=== PATIENT | female | born 1950 | race Caucasian/White ===

== ENCOUNTER → 2022-03-28 13:59 | Outpatient (CLI) | payer MEDICARE, OTHER, SELFPAY | PROVIDERS: PCP Internal Medicine; Referring Provider Internal Medicine; Visit Provider Family Medicine | DX: I87.2 Venous insufficiency (chronic) (peripheral) (principal); I89.0 Lymphedema, not elsewhere classified; L97.822 Non-pressure chronic ulcer of other part of left lower leg with fat layer exposed; L08.9 Local infection of the skin and subcutaneous tissue, unspecified; L25.8 Unspecified contact dermatitis due to other agents; R60.0 Localized edema; Z99.3 Dependence on wheelchair; Z74.09 Other reduced mobility; Z79.899 Other long term (current) drug therapy | CPT/HCPCS: 11042; 87070; 87075; 87077; 87186; 87205; 99204; 99213 ==

== ENCOUNTER → 2022-04-11 14:16 | Outpatient (CLI) | payer MEDICARE, OTHER, SELFPAY | PROVIDERS: PCP Internal Medicine; Referring Provider Internal Medicine; Visit Provider Family Medicine | DX: I89.0 Lymphedema, not elsewhere classified (principal); L97.822 Non-pressure chronic ulcer of other part of left lower leg with fat layer exposed; L08.9 Local infection of the skin and subcutaneous tissue, unspecified; I87.2 Venous insufficiency (chronic) (peripheral); L25.8 Unspecified contact dermatitis due to other agents; G35 Multiple sclerosis; Z99.3 Dependence on wheelchair; Z74.09 Other reduced mobility; Z79.899 Other long term (current) drug therapy; B96.29 Other Escherichia coli [E. coli] as the cause of diseases classified elsewhere | CPT/HCPCS: 11042; 87070; 87075; 87077; 87147; 87186; 87205; 99214 ==

== ENCOUNTER → 2022-04-18 13:15 | Outpatient (CLI) | payer MEDICARE, OTHER, SELFPAY | PROVIDERS: PCP Internal Medicine; Referring Provider Internal Medicine; Visit Provider Surgery | DX: I87.2 Venous insufficiency (chronic) (peripheral) (principal); I89.0 Lymphedema, not elsewhere classified; L97.822 Non-pressure chronic ulcer of other part of left lower leg with fat layer exposed; L03.116 Cellulitis of left lower limb; Z79.899 Other long term (current) drug therapy; L25.8 Unspecified contact dermatitis due to other agents; Z99.3 Dependence on wheelchair | CPT/HCPCS: 11042; 99214 ==

== ENCOUNTER → 2022-04-25 15:09 | Outpatient (CLI) | payer MEDICARE, OTHER, SELFPAY | PROVIDERS: PCP Internal Medicine; Referring Provider Internal Medicine; Visit Provider Family Medicine | DX: Z99.3 Dependence on wheelchair (principal); Z74.09 Other reduced mobility; Z79.899 Other long term (current) drug therapy; I87.2 Venous insufficiency (chronic) (peripheral); I89.0 Lymphedema, not elsewhere classified; L97.822 Non-pressure chronic ulcer of other part of left lower leg with fat layer exposed; L03.116 Cellulitis of left lower limb | CPT/HCPCS: 29581; 99212 ==

== ENCOUNTER → 2022-05-09 13:51 | Outpatient (CLI) | payer MEDICARE, OTHER, SELFPAY | PROVIDERS: PCP Internal Medicine; Referring Provider Internal Medicine; Visit Provider Surgery | DX: I87.2 Venous insufficiency (chronic) (peripheral) (principal); I89.0 Lymphedema, not elsewhere classified; L97.822 Non-pressure chronic ulcer of other part of left lower leg with fat layer exposed; Z99.3 Dependence on wheelchair | CPT/HCPCS: 87070; 87075; 87205; 97597; 99212 ==

== ENCOUNTER → 2022-05-16 13:47 | Outpatient (CLI) | payer MEDICARE, OTHER, SELFPAY | PROVIDERS: PCP Internal Medicine; Referring Provider Internal Medicine; Visit Provider Surgery | DX: I87.2 Venous insufficiency (chronic) (peripheral) (principal); L97.222 Non-pressure chronic ulcer of left calf with fat layer exposed; R60.0 Localized edema; G35 Multiple sclerosis; Z99.3 Dependence on wheelchair; Z74.09 Other reduced mobility | CPT/HCPCS: 97597; 99213 ==

== ENCOUNTER → 2022-06-13 13:11 | Outpatient (CLI) | payer MEDICARE, OTHER, SELFPAY | PROVIDERS: PCP Internal Medicine; Referring Provider Internal Medicine; Visit Provider Surgery | DX: I87.2 Venous insufficiency (chronic) (peripheral) (principal); I89.0 Lymphedema, not elsewhere classified; L97.822 Non-pressure chronic ulcer of other part of left lower leg with fat layer exposed; Z99.3 Dependence on wheelchair; Z74.09 Other reduced mobility | CPT/HCPCS: 11042; 99213 ==

== ENCOUNTER → 2022-06-27 13:01 | Outpatient (CLI) | payer MEDICARE, OTHER, SELFPAY | PROVIDERS: PCP Internal Medicine; Referring Provider Internal Medicine; Visit Provider Surgery | DX: I87.2 Venous insufficiency (chronic) (peripheral) (principal); I89.0 Lymphedema, not elsewhere classified; L97.822 Non-pressure chronic ulcer of other part of left lower leg with fat layer exposed; L03.116 Cellulitis of left lower limb; Z74.09 Other reduced mobility; Z99.3 Dependence on wheelchair | CPT/HCPCS: 97597 ==

== ENCOUNTER → 2022-07-04 13:09 | Outpatient (CLI) | payer MEDICARE, OTHER, SELFPAY | PROVIDERS: PCP Internal Medicine; Referring Provider Internal Medicine; Visit Provider Surgery | DX: I87.2 Venous insufficiency (chronic) (peripheral) (principal); L97.822 Non-pressure chronic ulcer of other part of left lower leg with fat layer exposed; I89.0 Lymphedema, not elsewhere classified; L03.116 Cellulitis of left lower limb; Z99.3 Dependence on wheelchair; Z79.899 Other long term (current) drug therapy; Z74.09 Other reduced mobility | CPT/HCPCS: 97597 ==

== ENCOUNTER → 2022-07-18 13:14 | Outpatient (CLI) | payer MEDICARE, OTHER, SELFPAY | PROVIDERS: PCP Internal Medicine; Referring Provider Internal Medicine; Visit Provider Surgery | DX: I87.2 Venous insufficiency (chronic) (peripheral) (principal); L97.822 Non-pressure chronic ulcer of other part of left lower leg with fat layer exposed; R60.0 Localized edema | CPT/HCPCS: 99212 ==

== ENCOUNTER → 2022-07-25 13:11 | Outpatient (CLI) | payer MEDICARE, OTHER, SELFPAY | PROVIDERS: PCP Internal Medicine; Visit Provider Surgery | DX: I87.2 Venous insufficiency (chronic) (peripheral) (principal); I89.0 Lymphedema, not elsewhere classified; L97.822 Non-pressure chronic ulcer of other part of left lower leg with fat layer exposed; S81.802A Unspecified open wound, left lower leg, initial encounter; Z99.3 Dependence on wheelchair; Z74.09 Other reduced mobility; Z79.899 Other long term (current) drug therapy | CPT/HCPCS: 15271; 29581; 97597; 99212; Q4196 ==

== ENCOUNTER → 2022-08-01 13:22 | Outpatient (CLI) | payer MEDICARE, OTHER, SELFPAY | PROVIDERS: PCP Internal Medicine; Referring Provider Internal Medicine; Visit Provider Surgery | DX: L97.822 Non-pressure chronic ulcer of other part of left lower leg with fat layer exposed (principal); I87.2 Venous insufficiency (chronic) (peripheral); I89.0 Lymphedema, not elsewhere classified; S81.802A Unspecified open wound, left lower leg, initial encounter; L08.9 Local infection of the skin and subcutaneous tissue, unspecified; G35 Multiple sclerosis; Z99.3 Dependence on wheelchair; Z74.09 Other reduced mobility | CPT/HCPCS: 11042; 36415; 80053; 85025 ==

== ENCOUNTER → 2022-08-01 14:15 | Outpatient (CLI) | payer MEDICARE, OTHER, SELFPAY ==
[2022-08-01 14:40] LABS: Add Manual Diff / Slide Review NO; Basophils Absolute Auto 100 /uL (0-100); Basophils Percent Auto 1.1 % (0-2); Eosinophils Absolute Auto 400 /uL (0-450); Eosinophils Percent Auto 7.4 % (2-4); Hematocrit 28.9 % (36-46); Hemoglobin 9.5 g/dL (12.0-16.0); Lymphocytes Absolute Auto 1700 /uL (1100-4500); Lymphocytes Percent Auto 31.6 % (25-40); Mean Corpuscular HGB Conc 32.7 % (30-36); Mean Corpuscular Hemoglobin 26.8 PG (26-34); Mean Corpuscular Volume 82.1 fL (80-100); Monocytes Absolute Auto 600 /uL (0-900); Monocytes Percent Auto 10.7 % (3-14); Neutrophils Absolute Auto 2600 /uL (1500-7000); Neutrophils Percent Auto 49.2 % (50-75); Platelet Count 287 X10^3/uL (150-400); Red Blood Cell Count 3.52 X10^6/uL (4.0-5.2); Red Cell Distribution Width 20.6 % (11.6-14.8); White Blood Cell Count 5.3 X10^3/uL (4.5-11.0)
[2022-08-01 14:50] LABS: Anisocytosis 1+; Poikilocytosis 1+
[2022-08-01 15:31] LABS: Alanine Aminotransferase 24 IU/L (<35); Albumin 4.1 g/dL (3.5-5.0); Albumin Globulin Ratio 1.3 (1.0-2.8); Alkaline Phosphatase 81 U/L (38-126); Aspartate Aminotransferase 25 IU/L (14-36); BUN Creatinine Ratio 42.7 (6-22); Blood Urea Nitrogen 56 mg/dL (7-17); Carbon Dioxide 27 mmol/L (22-32); Chloride 106 mmol/L (98-107); Estimated Glomerular Filt Rate 43 mL/min (>60); Globulin 3.2 g/dL (1.7-4.1); Glucose 79 mg/dL (80-110); HEMOLYSIS < 15 (0-50); Sodium 144 mmol/L (137-145); Total Protein 7.3 g/dL (6.3-8.2)
[2022-08-01 15:32] LABS: Bilirubin Total < 0.1 mg/dL (0.2-1.3); Potassium 5.6 mmol/L (3.4-5.1)
== END ==
PROVIDERS: PCP Internal Medicine; Referring Provider Surgery; Visit Provider Surgery
DX: L97.822 Non-pressure chronic ulcer of other part of left lower leg with fat layer exposed (principal)
CPT/HCPCS: 36415; 80053; 85025

== ENCOUNTER → 2022-08-08 13:01 | Outpatient (CLI) | payer MEDICARE, OTHER, SELFPAY | PROVIDERS: PCP Internal Medicine; Referring Provider Internal Medicine; Visit Provider Surgery | DX: I87.2 Venous insufficiency (chronic) (peripheral) (principal); I89.0 Lymphedema, not elsewhere classified; L97.822 Non-pressure chronic ulcer of other part of left lower leg with fat layer exposed; L03.116 Cellulitis of left lower limb; S81.802A Unspecified open wound, left lower leg, initial encounter; Z99.3 Dependence on wheelchair; Z74.09 Other reduced mobility; Z79.899 Other long term (current) drug therapy | CPT/HCPCS: 15271; 97597; Q4196 ==

== ENCOUNTER → 2022-08-15 14:38 | Outpatient (CLI) | payer MEDICARE, OTHER, SELFPAY | PROVIDERS: PCP Internal Medicine; Referring Provider Internal Medicine; Visit Provider Surgery | DX: I87.2 Venous insufficiency (chronic) (peripheral) (principal); L97.821 Non-pressure chronic ulcer of other part of left lower leg limited to breakdown of skin; I89.0 Lymphedema, not elsewhere classified; Z99.3 Dependence on wheelchair; Z74.09 Other reduced mobility | CPT/HCPCS: 15271; 97597; Q4196 ==

== ENCOUNTER → 2022-08-22 13:23 | Outpatient (CLI) | payer MEDICARE, OTHER, SELFPAY | PROVIDERS: PCP Internal Medicine; Referring Provider Internal Medicine; Visit Provider Surgery | DX: I87.2 Venous insufficiency (chronic) (peripheral) (principal); I89.0 Lymphedema, not elsewhere classified; S81.802A Unspecified open wound, left lower leg, initial encounter; L97.822 Non-pressure chronic ulcer of other part of left lower leg with fat layer exposed; L97.422 Non-pressure chronic ulcer of left heel and midfoot with fat layer exposed; L03.116 Cellulitis of left lower limb; Z99.3 Dependence on wheelchair; Z74.09 Other reduced mobility; Z79.899 Other long term (current) drug therapy | CPT/HCPCS: 15271; 97597; 99213; Q4196 ==

== ENCOUNTER → 2022-08-29 13:10 | Outpatient (CLI) | payer MEDICARE, OTHER, SELFPAY | PROVIDERS: PCP Internal Medicine; Referring Provider Internal Medicine; Visit Provider Surgery | DX: I87.2 Venous insufficiency (chronic) (peripheral) (principal); I89.0 Lymphedema, not elsewhere classified; L97.822 Non-pressure chronic ulcer of other part of left lower leg with fat layer exposed; S81.802A Unspecified open wound, left lower leg, initial encounter; G35 Multiple sclerosis; R60.0 Localized edema; Z99.3 Dependence on wheelchair; Z74.09 Other reduced mobility | CPT/HCPCS: 11042; 29581; 97597; 99213 ==

== ENCOUNTER → 2022-09-12 13:02 | Outpatient (CLI) | payer MEDICARE, OTHER, SELFPAY | PROVIDERS: PCP Internal Medicine; Referring Provider Internal Medicine; Visit Provider Surgery | DX: I87.2 Venous insufficiency (chronic) (peripheral) (principal); I89.0 Lymphedema, not elsewhere classified; L97.822 Non-pressure chronic ulcer of other part of left lower leg with fat layer exposed; L03.116 Cellulitis of left lower limb; Z99.3 Dependence on wheelchair; Z74.09 Other reduced mobility; Z79.899 Other long term (current) drug therapy | CPT/HCPCS: 11042 ==

== ENCOUNTER → 2022-09-26 12:42 | Outpatient (CLI) | payer MEDICARE, OTHER, SELFPAY ==
--- NOTE | 2022-09-26 12:43 | DI.US.S_ITS ---
PROCEDURE: US ARTERIAL DUPLEX LE LT INDICATIONS: NON-HEALING ULCER TECHNIQUE: Color and pulse Doppler interrogation was performed of the left lower extremity arterial system, with image documentation. COMPARISON: None. FINDINGS: Common femoral artery: 186 cm/sec, with triphasic flow. Deep femoral artery: 190 cm/sec, with monophasic flow. Proximal superficial femoral artery: 207 cm/sec, with monophasic flow. Mid superficial femoral artery: 125 cm/sec, with triphasic flow. Distal superficial femoral artery: 99 cm/sec, with monophasic flow. Popliteal artery: 124 cm/sec, with monophasic flow. Posterior tibial artery: Not well seen Anterior tibial artery/dorsalis pedis: 46 cm/sec, with monophasic flow. Dorsalis pedis artery is occluded. Mejía-scale imaging description: Moderate edema within the calf. IMPRESSION: 1. Findings suggestive of hemodynamically significant stenoses within the left-sided outflow vessels. 2. Occlusion of the dorsalis pedis artery. 3. Nonvisualization of the posterior tibial artery, possibly indicating occlusion. 4. MR angiography runoff evaluation is recommended for further assessment. Dictated by: Shauna Dawson M.D. on 09/26/2022 at 15:37 Transcribed by: [email or web address] on 09/26/2022 at 15:39 Approved by: Shauna Dawson M.D. on 09/26/2022 at 16:44
== END ==
PROVIDERS: PCP Internal Medicine; Referring Provider Surgery; Visit Provider Surgery
DX: L97.822 Non-pressure chronic ulcer of other part of left lower leg with fat layer exposed (principal); I77.1 Stricture of artery
CPT/HCPCS: 93926

== ENCOUNTER → 2022-09-26 | Outpatient (CLI) | payer MEDICARE, OTHER, SELFPAY | PROVIDERS: PCP Internal Medicine; Referring Provider Internal Medicine; Visit Provider Nurse Practitioner Family | DX: L97.822 Non-pressure chronic ulcer of other part of left lower leg with fat layer exposed (principal); I77.1 Stricture of artery; I87.2 Venous insufficiency (chronic) (peripheral) | CPT/HCPCS: 29581; 93926 ==

== ENCOUNTER → 2022-10-03 13:00 | Outpatient (CLI) | payer MEDICARE, OTHER, SELFPAY | PROVIDERS: PCP Internal Medicine; Referring Provider Internal Medicine; Visit Provider Surgery | DX: I87.2 Venous insufficiency (chronic) (peripheral) (principal); I89.0 Lymphedema, not elsewhere classified; L97.222 Non-pressure chronic ulcer of left calf with fat layer exposed; L97.422 Non-pressure chronic ulcer of left heel and midfoot with fat layer exposed; Z99.3 Dependence on wheelchair; Z74.09 Other reduced mobility; I73.9 Peripheral vascular disease, unspecified; G35 Multiple sclerosis; R53.1 Weakness | CPT/HCPCS: 11042; 97597; 99213 ==

== ENCOUNTER → 2022-10-17 13:17 | Outpatient (CLI) | payer MEDICARE, OTHER, SELFPAY | PROVIDERS: PCP Internal Medicine; Referring Provider Internal Medicine; Visit Provider Surgery | DX: I87.2 Venous insufficiency (chronic) (peripheral) (principal); I89.0 Lymphedema, not elsewhere classified; L97.822 Non-pressure chronic ulcer of other part of left lower leg with fat layer exposed; L97.422 Non-pressure chronic ulcer of left heel and midfoot with fat layer exposed; I73.9 Peripheral vascular disease, unspecified; Z74.09 Other reduced mobility; Z99.3 Dependence on wheelchair | CPT/HCPCS: 11042; 99213 ==

== ENCOUNTER → 2022-10-31 13:16 | Outpatient (CLI) | payer MEDICARE, OTHER, SELFPAY | PROVIDERS: PCP Internal Medicine; Referring Provider Internal Medicine; Visit Provider Surgery | DX: I87.2 Venous insufficiency (chronic) (peripheral) (principal); I89.0 Lymphedema, not elsewhere classified; L97.222 Non-pressure chronic ulcer of left calf with fat layer exposed; R60.0 Localized edema; L53.9 Erythematous condition, unspecified; Z99.3 Dependence on wheelchair; G35 Multiple sclerosis | CPT/HCPCS: 11042; 29581; 99212 ==

== ENCOUNTER → 2022-11-21 12:25 | Outpatient (CLI) | payer MEDICARE, OTHER, SELFPAY ==
[2022-11-21 14:15] LABS: Add Manual Diff / Slide Review NO; Basophils Absolute Auto 0 /uL (0-100); Basophils Percent Auto 0.4 % (0-2); Eosinophils Absolute Auto 100 /uL (0-450); Eosinophils Percent Auto 2.9 % (2-4); Hematocrit 36.7 % (36-46); Hemoglobin 12.2 g/dL (12.0-16.0); Lymphocytes Absolute Auto 1400 /uL (1100-4500); Lymphocytes Percent Auto 31.5 % (25-40); Mean Corpuscular HGB Conc 33.3 % (30-36); Mean Corpuscular Volume 89.8 fL (80-100); Monocytes Absolute Auto 400 /uL (0-900); Monocytes Percent Auto 9.1 % (3-14); Neutrophils Absolute Auto 2600 /uL (1500-7000); Neutrophils Percent Auto 56.1 % (50-75); Platelet Count 209 X10^3/uL (150-400); Red Blood Cell Count 4.08 X10^6/uL (4.0-5.2); Red Cell Distribution Width 15.7 % (11.6-14.8); White Blood Cell Count 4.6 X10^3/uL (4.5-11.0)
== END ==
PROVIDERS: PCP Internal Medicine; Referring Provider Surgery; Visit Provider Surgery
DX: L97.822 Non-pressure chronic ulcer of other part of left lower leg with fat layer exposed (principal)
CPT/HCPCS: 36415; 85025

== ENCOUNTER → 2022-11-21 13:14 | Outpatient (CLI) | payer MEDICARE, OTHER, SELFPAY | PROVIDERS: PCP Internal Medicine; Referring Provider Internal Medicine; Visit Provider Surgery | DX: I87.2 Venous insufficiency (chronic) (peripheral) (principal); I89.0 Lymphedema, not elsewhere classified; L97.822 Non-pressure chronic ulcer of other part of left lower leg with fat layer exposed; L97.422 Non-pressure chronic ulcer of left heel and midfoot with fat layer exposed; I73.9 Peripheral vascular disease, unspecified; G35 Multiple sclerosis | CPT/HCPCS: 11042; 36415; 85025 ==

== ENCOUNTER → 2022-12-12 13:35 | Outpatient (CLI) | payer MEDICARE, OTHER, SELFPAY | PROVIDERS: PCP Internal Medicine; Referring Provider Internal Medicine; Visit Provider Surgery | DX: I87.2 Venous insufficiency (chronic) (peripheral) (principal); I89.0 Lymphedema, not elsewhere classified; L97.822 Non-pressure chronic ulcer of other part of left lower leg with fat layer exposed; L97.422 Non-pressure chronic ulcer of left heel and midfoot with fat layer exposed; I73.9 Peripheral vascular disease, unspecified; R60.0 Localized edema; Z99.3 Dependence on wheelchair; Z74.09 Other reduced mobility | CPT/HCPCS: 11042; 99213 ==

== ENCOUNTER → 2022-12-26 13:06 | Outpatient (CLI) | payer MEDICARE, OTHER, SELFPAY ==
--- NOTE | 2022-12-26 14:10 | DI.MRI.S_ITS ---
PROCEDURE: MR HEAD/BRAIN WO/W CON INDICATIONS: Multiple sclerosis TECHNIQUE: Noncontrast sagittal and axial FLAIR, axial and coronal T2 fast spin echo, axial VIBE, axial gradient echo, axial diffusion and ADC through the brain. After the administration of contrast, axial and coronal and sagittal VIBE with fat saturation through the brain. COMPARISON: Outside Facility, RG, MRI BRAIN W/WO CONTRAST, 12/16/2016, 9:16. FINDINGS: Image quality: Excellent. CSF spaces: Ventricles are normal in size and shape. Basal cisterns are patent. No extra-axial fluid collections. Brain: Again seen are multiple foci abnormal T2/FLAIR hyperintense signal in the bilateral cerebral hemisphere white matter. No definite new lesions are identified. No abnormal enhancement or enhancing lesions. No intracranial bleeds or mass effects. Mejía-white matter interface appears intact. No suspicious white matter lesions. No abnormal intracranial enhancement. Diffusion weighted images show no acute ischemic insults. Brainstem appears normal. Normal intravascular flow voids are present. Skull and face: Calvarial marrow signal is normal. Orbits appear normal. Sinuses: Sinuses and mastoids are clear. IMPRESSION: 1. Again seen are multiple foci abnormal T2/FLAIR signal hyperintensity in the bilateral cerebral hemispheric white matter. No new lesions are identified. No diffusion restricting or enhancing lesions are seen. 2. No acute intracranial abnormalities. Dictated by: Kevni Hicks M.D. on 01/02/2023 at 10:13 Approved by: Kevin Hicks M.D. on 01/02/2023 at 10:26
== END ==
PROVIDERS: PCP Internal Medicine; Referring Provider Psychiatry & Neurology Neurology; Visit Provider Psychiatry & Neurology Neurology
DX: G35 Multiple sclerosis (principal)
CPT/HCPCS: 70553

== ENCOUNTER → 2023-01-02 13:27 | Outpatient (CLI) | payer MEDICARE, OTHER, SELFPAY | PROVIDERS: PCP Internal Medicine; Referring Provider Internal Medicine; Visit Provider Surgery | DX: I87.2 Venous insufficiency (chronic) (peripheral) (principal); I89.0 Lymphedema, not elsewhere classified; L97.822 Non-pressure chronic ulcer of other part of left lower leg with fat layer exposed; I73.9 Peripheral vascular disease, unspecified; Z99.3 Dependence on wheelchair; Z74.09 Other reduced mobility | CPT/HCPCS: 11042 ==

== ENCOUNTER → 2023-01-23 12:58 | Outpatient (CLI) | payer MEDICARE, OTHER, SELFPAY | PROVIDERS: PCP Internal Medicine; Referring Provider Internal Medicine; Visit Provider Surgery | DX: I87.2 Venous insufficiency (chronic) (peripheral) (principal); I89.0 Lymphedema, not elsewhere classified; L97.822 Non-pressure chronic ulcer of other part of left lower leg with fat layer exposed; Z99.3 Dependence on wheelchair; Z74.09 Other reduced mobility; I73.9 Peripheral vascular disease, unspecified | CPT/HCPCS: 11042; 99213 ==

== ENCOUNTER → 2023-02-13 12:50 | Outpatient (CLI) | payer MEDICARE, OTHER, SELFPAY ==
[2023-02-13 14:38] LABS: BUN Creatinine Ratio 24.4 (6-22); Blood Urea Nitrogen 21 mg/dL (7-17); Calcium 9.4 mg/dL (8.4-10.2); Carbon Dioxide 30 mmol/L (22-32); Chloride 104 mmol/L (98-107); Estimated Glomerular Filt Rate > 60 mL/min (>60); Glucose 87 mg/dL (80-110); HEMOLYSIS < 15 (0-50); Sodium 141 mmol/L (137-145)
== END ==
PROVIDERS: PCP Internal Medicine; Referring Provider Psychiatry & Neurology Neurology; Visit Provider Psychiatry & Neurology Neurology
DX: N31.8 Other neuromuscular dysfunction of bladder (principal); R79.89 Other specified abnormal findings of blood chemistry
CPT/HCPCS: 36415; 80048

== ENCOUNTER → 2023-02-13 13:16 | Outpatient (CLI) | payer MEDICARE, OTHER, SELFPAY | PROVIDERS: PCP Internal Medicine; Referring Provider Internal Medicine; Visit Provider Surgery | DX: I87.2 Venous insufficiency (chronic) (peripheral) (principal); L97.822 Non-pressure chronic ulcer of other part of left lower leg with fat layer exposed; Z99.3 Dependence on wheelchair | CPT/HCPCS: 11042 ==

== ENCOUNTER → 2023-03-06 13:09 | Outpatient (CLI) | payer MEDICARE, OTHER, SELFPAY | PROVIDERS: PCP Internal Medicine; Referring Provider Internal Medicine; Visit Provider Surgery | DX: I87.2 Venous insufficiency (chronic) (peripheral) (principal); L97.822 Non-pressure chronic ulcer of other part of left lower leg with fat layer exposed; I89.0 Lymphedema, not elsewhere classified; I73.9 Peripheral vascular disease, unspecified; Z99.3 Dependence on wheelchair; Z74.09 Other reduced mobility; G82.20 Paraplegia, unspecified | CPT/HCPCS: 11042; 99212; 99213 ==

== ENCOUNTER → 2023-03-27 13:45 | Outpatient (CLI) | payer MEDICARE, OTHER, SELFPAY | PROVIDERS: PCP Internal Medicine; Referring Provider Internal Medicine; Visit Provider Surgery | DX: I87.2 Venous insufficiency (chronic) (peripheral) (principal); I89.0 Lymphedema, not elsewhere classified; L97.822 Non-pressure chronic ulcer of other part of left lower leg with fat layer exposed; G35 Multiple sclerosis; Z99.3 Dependence on wheelchair | CPT/HCPCS: 97602; 99212; 99213 ==

== ENCOUNTER → 2023-04-17 13:26 | Outpatient (CLI) | payer MEDICARE, OTHER, SELFPAY | PROVIDERS: PCP Internal Medicine; Referring Provider Internal Medicine; Visit Provider Surgery | DX: I87.2 Venous insufficiency (chronic) (peripheral) (principal); L97.822 Non-pressure chronic ulcer of other part of left lower leg with fat layer exposed; I89.0 Lymphedema, not elsewhere classified; Z99.3 Dependence on wheelchair | CPT/HCPCS: 11042; 87070; 87075; 87077; 87147; 87186; 87205; 97597; 99214 ==

== ENCOUNTER → 2023-05-01 13:23 | Outpatient (CLI) | payer MEDICARE, OTHER, SELFPAY | PROVIDERS: PCP Internal Medicine; Referring Provider Internal Medicine; Visit Provider Surgery | DX: I87.2 Venous insufficiency (chronic) (peripheral) (principal); L97.822 Non-pressure chronic ulcer of other part of left lower leg with fat layer exposed; L97.322 Non-pressure chronic ulcer of left ankle with fat layer exposed; Z99.3 Dependence on wheelchair; Z74.09 Other reduced mobility; I89.0 Lymphedema, not elsewhere classified; R60.0 Localized edema | CPT/HCPCS: 11042; 99212; 99213 ==

== ENCOUNTER → 2023-05-22 14:00 | Outpatient (CLI) | payer MEDICARE, OTHER, SELFPAY | PROVIDERS: PCP Internal Medicine; Referring Provider Internal Medicine; Visit Provider Surgery | DX: I87.2 Venous insufficiency (chronic) (peripheral) (principal); L97.822 Non-pressure chronic ulcer of other part of left lower leg with fat layer exposed; L97.322 Non-pressure chronic ulcer of left ankle with fat layer exposed; L53.9 Erythematous condition, unspecified; Z99.3 Dependence on wheelchair; G35 Multiple sclerosis | CPT/HCPCS: 11042 ==

== ENCOUNTER → 2023-06-12 13:36 | Outpatient (CLI) | payer MEDICARE, OTHER, SELFPAY | LOC: WC 13:40 | PROVIDERS: PCP Internal Medicine; Referring Provider Internal Medicine; Visit Provider Surgery | DX: I87.2 Venous insufficiency (chronic) (peripheral) (principal); L97.822 Non-pressure chronic ulcer of other part of left lower leg with fat layer exposed; R21 Rash and other nonspecific skin eruption; I89.0 Lymphedema, not elsewhere classified; G35 Multiple sclerosis; Z99.3 Dependence on wheelchair; Z79.60 Long term (current) use of unspecified immunomodulators and immunosuppressants; L97.322 Non-pressure chronic ulcer of left ankle with fat layer exposed | CPT/HCPCS: 11042 ==

== ENCOUNTER → 2023-07-03 13:49 | Outpatient (CLI) | payer MEDICARE, OTHER, SELFPAY | PROVIDERS: PCP Internal Medicine; Referring Provider Internal Medicine; Visit Provider Surgery | DX: L97.322 Non-pressure chronic ulcer of left ankle with fat layer exposed (principal); L97.822 Non-pressure chronic ulcer of other part of left lower leg with fat layer exposed; I87.2 Venous insufficiency (chronic) (peripheral); I89.0 Lymphedema, not elsewhere classified; R60.0 Localized edema; G35 Multiple sclerosis; E78.00 Pure hypercholesterolemia, unspecified; Z99.3 Dependence on wheelchair | CPT/HCPCS: 11042; 36415; 80053; 80061; 85025 ==

== ENCOUNTER → 2023-07-03 13:57 | Outpatient (CLI) | payer MEDICARE, OTHER, SELFPAY ==
[2023-07-03 14:27] LABS: Add Manual Diff / Slide Review NO; Basophils Absolute Auto 0 /uL (0-100); Basophils Percent Auto 0.6 % (0-2); Eosinophils Absolute Auto 100 /uL (0-450); Eosinophils Percent Auto 2.8 % (2-4); Hematocrit 39.7 % (36-46); Lymphocytes Absolute Auto 1500 /uL (1100-4500); Lymphocytes Percent Auto 29.2 % (25-40); Mean Corpuscular HGB Conc 32.8 % (30-36); Mean Corpuscular Hemoglobin 30.1 PG (26-34); Mean Corpuscular Volume 91.9 fL (80-100); Monocytes Absolute Auto 500 /uL (0-900); Monocytes Percent Auto 9.9 % (3-14); Neutrophils Absolute Auto 2900 /uL (1500-7000); Neutrophils Percent Auto 57.5 % (50-75); Platelet Count 239 X10^3/uL (150-400); Red Blood Cell Count 4.32 X10^6/uL (4.0-5.2); Red Cell Distribution Width 13.8 % (11.6-14.8); White Blood Cell Count 5.1 X10^3/uL (4.5-11.0)
[2023-07-03 14:52] LABS: Alanine Aminotransferase 28 IU/L (<35); Albumin 4.4 g/dL (3.5-5.0); Albumin Globulin Ratio 1.3 (1.0-2.8); Alkaline Phosphatase 69 U/L (38-126); Aspartate Aminotransferase 33 IU/L (14-36); BUN Creatinine Ratio 28.2 (6-22); Bilirubin Total 0.5 mg/dL (0.2-1.3); Blood Urea Nitrogen 24 mg/dL (7-17); Calcium 9.9 mg/dL (8.4-10.2); Carbon Dioxide 29 mmol/L (22-32); Chloride 100 mmol/L (98-107); Cholesterol 200 mg/dL (140-199); Estimated Glomerular Filt Rate > 60 mL/min (>60); Globulin 3.3 g/dL (1.7-4.1); Glucose 92 mg/dL (80-110); HDL Cholesterol 60 mg/dL (40-60); HEMOLYSIS < 15 (0-50); LDL Cholesterol Calculated 120 mg/dL (<100); Potassium 4.6 mmol/L (3.4-5.1); Sodium 139 mmol/L (137-145); Total Protein 7.7 g/dL (6.3-8.2); Triglycerides 99 mg/dL (35-150)
== END ==
PROVIDERS: PCP Internal Medicine; Referring Provider Internal Medicine; Visit Provider Internal Medicine
DX: E78.00 Pure hypercholesterolemia, unspecified (principal)
CPT/HCPCS: 36415; 80053; 80061; 85025

== ENCOUNTER → 2023-08-14 13:45 | Outpatient (CLI) | payer MEDICARE, OTHER, SELFPAY | LOC: WC 13:47 | PROVIDERS: PCP Internal Medicine; Referring Provider Internal Medicine; Visit Provider Surgery | DX: I87.2 Venous insufficiency (chronic) (peripheral) (principal); I89.0 Lymphedema, not elsewhere classified; I73.9 Peripheral vascular disease, unspecified; G82.20 Paraplegia, unspecified; Z74.09 Other reduced mobility; Z99.3 Dependence on wheelchair | CPT/HCPCS: 99213 ==